=== PATIENT | female | born 1980 | race African-American/Black ===

== ENCOUNTER 2018-02-28 14:35 | Emergency (ER) | payer SELFPAY ==
[2018-02-28] MEDS ORDERED: SULF1TAB24 PO (16:08)
== END 2018-02-28 14:51 | disposition left against medical advice (07) ==
LOC: ER 14:35
DX: M79.671 Pain in right foot (principal); Z53.21 Procedure and treatment not carried out due to patient leaving prior to being seen by health care provider

== ENCOUNTER 2018-02-28 15:02 | Emergency (ER) | payer SELFPAY ==
[~2018-02-28] VITALS: Ht 170.2 cm; Wt 136.1 kg
[2018-02-28 15:36] VITALS: BP 113/69
[2018-02-28] MEDS ORDERED: SULF1TAB24 PO (16:08)
--- NOTE | 2018-02-28 16:08 | PHYS DOC ---
Past Medical History Past Medical History: No Pertinent History Past Surgical History: Tubal ligation Alcohol Use: Occasionally Drug Use: None Adult General Chief Complaint Chief Complaint: FOOT INJURY PAIN [facility] HPI Patient is a 37 year old female whom presents to the ED complaining of left foot injury 2 days ago. Patient states she did not have shoes on and accidentally stepped on a nail that punctured her left foot. Describes the pain as sharp. Rates the pain as 2 out of 10. States she noticed some redness around the area and wanted to get it checked out. States the nail came out whole. Patient able to ambulate without assistance. Denies fever, swelling, laceration , nausea/vomiting, dizziness, weakness, chest pain or shortness of breath. Review of Systems Review of Systems Constitutional: Denies fever or chills [] Respiratory: Denies cough or shortness of breath [] Cardiovascular: No additional information not addressed in HPI [] GI: Denies abdominal pain, nausea, vomiting, bloody stools or diarrhea [] : Denies dysuria or hematuria [] Musculoskeletal: Complains of foot injury. Denies back pain or joint pain [] Integument: Denies rash or skin lesions [] Neurologic: Denies headache, focal weakness or sensory changes [] All other systems were reviewed and found to be within normal limits, except as documented in this note. Current Medications Current Medications Current Medications Medications (Trade) Dose Ordered Sig/Rosalio Start Time Stop Time Status Last Admin Dose Admin Diphtheria/ Tetanus/Acell Pertussis (Boostrix) 0.5 ml ONCE ONCE 02/28/18 16:15 02/28/18 16:16 DC 02/28/18 16:17 0.5 ML Allergies Allergies Allergies Coded Allergies Type Severity Reaction Last Updated Verified No Known Drug Allergies 02/28/18 No Physical Exam Physical Exam Constitutional: Well developed, well nourished, no acute distress, non-toxic appearance. [] Neck: Normal range of motion, no tenderness, supple, no stridor. [] Skin: Warm, dry, no erythema, no rash. [] Back: No tenderness, no CVA tenderness. [] Extremities: Left 1 x 1 cm erythematous area to left lateral distal foot. No bony tenderness, no cyanosis, no clubbing, ROM intact, no edema. [] Neurologic: Alert and oriented X 3, normal motor function, normal sensory function, no focal deficits noted. [] Psychologic: Affect normal, judgement normal, mood normal. [] Current Patient Data Vital Signs Vital Signs Date Time Temp Pulse Resp B/P (MAP) Pulse Ox O2 Delivery O2 Flow Rate FiO2 02/28/18 15:36 98.9 88 20 113/69 (84) 97 Room Air 98.9 EKG EKG [] Radiology/Procedures Radiology/Procedures [] Course & Med Decision Making Course & Med Decision Making Pertinent Labs and Imaging studies reviewed. (See chart for details) []Nail did not go through patients shoe as she was barefoot when the injury occurred. Will treat with antibiotics outpatient. Discussed symptomatic treatment. Patient states the nail came out whole; no need for imaging. Tetanus updated. Discussed reasons to return to the ED. Patient understands and agrees with plan. Dragon Disclaimer Dragon Disclaimer This electronic medical record was generated, in whole or in part, using a voice recognition dictation system. Departure Departure Impression: Primary Impression: Puncture wound Disposition: 01 HOME, SELF-CARE Condition: STABLE Referrals: NO PCP (PCP) VINCE BETANCUR MD Patient Instructions: Puncture Wound Scripts Sulfamethoxazole/Trimethoprim (BACTRIM DS TABLET) 1 Each Tablet 1 TAB PO BID for 10 Days, #20 TAB Prov: DIONNE PENDLETON 02/28/18 DIONNE PENDLETON Feb 28, 2018 16:08
[2018-02-28] MEDS ORDERED: DIPHTH,PERTUSS(ACELL),TET TOX 0.5 ML DISP.SYRIN. VAX IM ONE (16:15)
== END 2018-02-28 16:35 | disposition home or self-care (01) ==
LOC: ER 15:02
DX: S91.332A Puncture wound without foreign body, left foot, initial encounter (principal); Z98.51 Tubal ligation status; X58.XXXA Exposure to other specified factors, initial encounter; Y93.89 Activity, other specified; Y92.89 Other specified places as the place of occurrence of the external cause; Y99.8 Other external cause status
CPT/HCPCS: 90471; 90715; 99283